=== PATIENT | male | born 1980 | race Caucasian/White ===

== ENCOUNTER 2024-12-02 19:24 | Emergency (ER) | payer OTHER ==
[~2024-12-02] VITALS: Ht 172.7 cm; Wt 88.6 kg
[2024-12-02 19:40] VITALS: BP 116/71; PULSE 66; RESP 15; TEMP 98; O2SAT 99
[2024-12-02 20:49] LABS: MEAN PLATELET VOLUME 7.7 FL (7.4-10.4); RED CELL DISTRIBUTION WIDTH 12.7 % (11.5-14.5)
[2024-12-02 21:10] LABS: CREATININE 0.89 MG/DL (0.60-1.10); PRO BRAIN NATRIURETIC PEPTIDE 81 PG/ML (0-125); TOTAL CARBON DIOXIDE 27.5 MMOL/L (24-32); eCRCL 104 ML/MIN; eGFR > 90 ML/MIN
--- NOTE | 2024-12-02 21:28 | RADIOLOGY REPORT ---
CHEST RADIOGRAPH Indication: CP Technique: Single frontal view of the chest was obtained COMPARISON: None FINDINGS: Lines and Tubes: None Lungs: Clear Pleura: No effusion. No pneumothorax. Cardiomediastinal contours: Unremarkable. Surgical clips overlie the central mediastinum. Bones: Unremarkable IMPRESSION: 1. No acute disease.
--- NOTE | 2024-12-02 22:22 | Physician Documentation ---
History of Present Illness ~ Chief Complaint: Chest Wall Pain Stated Complaint: CP Time Seen by MD: 20:32 HPI Patient is a known vapor of nicotine and presents today with a complaint of ongoing chest wall pain. States that he did not have heart surgery when he was a baby so he has extra cautiousr whenever he has chest pain. Denies any nausea vomiting or radiating chest pain or increased shortness of breath Day of Onset: Dec 02, 2024 Allergies: Coded Allergies: No Known Allergies (Unverified , 12/02/24) Active Prescriptions See Medication Reconciliation Form. 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 12/02/24 22:19 Physical Exam Vital Signs: Temperature: 98.0, Source: Temporal, Heart Rate: 66, Respiratory Rate: 15, BP: 116/71, Pulse Oximetry: 99, Weight: 88.640 Physical Exam General: Alert, no apparent distress. Respiratory: Lungs clear, no respiratory distress. Chest: No accessory muscle use. tender to the anterior upper intercostal regions via palpation Cardiovascular: Regular rate and rhythm, no murmurs. Neurologic: Oriented x4. Psychiatric: Normal mood and affect. Skin: Normal color, warm and dry. No edema, no ecchymosis. Progress Results/Orders Results/Orders Orders - TRISTON CARVAJAL CYLINDER HANDLER Chest,Single View (12/02/24 20:33) Monitor (12/02/24 20:33) Saline Lock (12/02/24 20:33) Oxygen (12/02/24 20:33) Electrocardiogram (12/02/24 20:33) Completed Orders - TRISTON CARVAJAL [employer]LINDER HANDLER Chest,Single View (12/02/24 20:33) Cbc/Diff (12/02/24 20:33) BMP (12/02/24 20:33) PBNP (12/02/24 20:33) Hs Troponin I W Calculations (12/02/24 20:33) Vital Signs 12/02/24 19:40 Temp 98.0 Pulse 66 Resp 15 B/P (MAP) 116/71 Pulse Ox 99 Laboratory Tests Test 12/02/24 20:41 White Blood Count 8.8 Red Blood Count 4.89 Hemoglobin 14.9 Hematocrit 42.4 Mean Corpuscular Volume 86.7 Mean Corpuscular Hemoglobin 30.4 Mean Corpuscular Hemoglobin Concent 35.1 Red Cell Distribution Width 12.7 Platelet Count 192 Mean Platelet Volume 7.7 Neutrophils (%) (Auto) 55.5 Lymphocytes (%) (Auto) 31.3 Monocytes (%) (Auto) 9.5 Eosinophils (%) (Auto) 3.1 Basophils (%) (Auto) 0.6 Neutrophils # (Auto) 4.9 Lymphocytes # (Auto) 2.8 Monocytes # (Auto) 0.8 Eosinophils # (Auto) 0.3 Basophils # (Auto) 0.1 CBC Comment Sodium Level 141 Potassium Level 4.1 Chloride Level 104 Carbon Dioxide Level 27.5 Anion Gap 10 Blood Urea Nitrogen 16 Creatinine 0.89 Estimated GFR/1.73 m2 > 90 BUN/Creatinine Ratio 18.0 Glucose Level 98 Calcium Level 8.6 Troponin I High Sensitivity 7 Pro-B-Type Natriuretic Peptide 81 Albumin 4.1 Chemistry Comments Medical Decision Making Findings I discussed with the this patient about the likelihood of vaping causing costochondritis. Showed him via examination where the pain is in his inner costal regions. He appeared reassured. He said if he stopped vaping that the pain would likely go away and I said yes. At this time he requested to be discharged Of his labs were reassuring as was his x-ray as I did not appreciate any infiltrate or cardiomegaly. EKG was unremarkable Differential Dx:Considerations: Include: Chest wall contusion, Flail chest, Myocardial contusion, Pneumothorax, Pulmonary contusion, Rib fracture, Renal contusion, Splenic fracture, Tension pneumothorax, Other Departure Disposition: 01 HOME / SELF CARE / HOMELESS Impression: Primary Impression: Costochondritis Condition: Stable Discharge Instructions: Costochondritis Referrals: NO PRIMARY CARE PROVIDER (PCP) Signature Scribe Signature: f Attestation: Scribed for Triston Carvajal [employer] Window [employer] Maker by Triston Anne NP . 12/02/24 22:18 TRISTON CARVAJAL NP Dec 02, 2024 22:22
--- NOTE | 2024-12-03 06:01 | ELECTROCARDIOGRAPH REPORT ---
[facility] Test Date: 2024-12-02 Test Time: 19:30:47 Pat Name: SHASTA RATLIFF Department: EMERGENCY ROOM [id number] Room: Gender: M It Manager: ALEIDA : 1980 Requested By: NEREIDA CARVAJAL Order Number: [id number] Reading MD: Measurements Intervals [place] Rate: 69 P: 22 NM: 252 QRS: -41 QRSD: 112 T: 81 QT: 424 QTc: 455 Interpretive Statements Sinus rhythm Prolonged NM interval Probable left atrial enlargement Incomplete RBBB and LAFB Abnormal R-wave progression, late transition Left ventricular hypertrophy ST elevation, consider inferior injury Please click the below link to view image of tracing.
== END 2024-12-02 22:50 | disposition home or self-care (01) ==
LOC: ER 19:25
DX: M94.0 Chondrocostal junction syndrome [Tietze] (principal)
CPT/HCPCS: 36415; 71045; 80048; 83880; 84484; 85025; 93005; 99285